=== PATIENT | female | born 2005 | race Caucasian/White ===

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

== ENCOUNTER 2024-01-16 08:39 | Emergency (ER) | payer OTHER ==
[~2024-01-16] VITALS: Ht 157.5 cm; Wt 95.0 kg
[2024-01-16 08:56] VITALS: BP 116/63; PULSE 85; RESP 16; TEMP 98.3
[2024-01-16] MEDS: IBUPROFEN 600 MG TABLET PO ONE (10:42)
[2024-01-16] MEDS: CEPHALEXIN MONOHYDRATE 500 MG CAPSULE PO ONE (10:42)
[2024-01-16] MEDS: DOXYCYCLINE HYCLATE 100 MG TABLET PO ONE (10:42)
[2024-01-16] MEDS: BACITRACIN 0.9 GM PACKET OINTMENT TP ONE (10:43)
[2024-01-16] MEDS: LIDOCAINE 1% 10 ML VIAL SQ ONE (10:43)
[2024-01-16] MEDS ORDERED: IBUP-1554 PO (11:20)
[2024-01-16] MEDS ORDERED: CEPH-558 PO (11:20)
[2024-01-16] MEDS ORDERED: DOXY-354 PO (11:20)
== END 2024-01-16 11:31 | disposition home or self-care (01) ==
LOC: EMS 08:39
DX: T16.1XXA Foreign body in right ear, initial encounter (principal); W44.8XXA Other foreign body entering into or through a natural orifice, initial encounter; Y93.89 Activity, other specified; Y92.89 Other specified places as the place of occurrence of the external cause; Y99.8 Other external cause status
CPT/HCPCS: 99284; J3490